=== PATIENT | male | born 1965 | race Caucasian/White ===

== ENCOUNTER 2018-03-21 18:18 | Emergency (ER) | payer OTHER, SELFPAY ==
[2018-03-21 18:20] VITALS: BP 124/74; PULSE 93; RESP 14; TEMP 36.6; O2SAT 100; BMI 38.7
--- NOTE | 2018-03-21 18:41 | ED.MALEGU ---
HPI - Male Genitourinary <Paige Johnson PA-C - Last Filed: 03/21/18 22:01> General Chief complaint: Urogenital-Male Stated complaint: POSSIBLE KIDNEY STONE Time Seen by Provider: 03/21/18 18:41 Source: patient Mode of arrival: ambulatory Limitations: no limitations History of Present Illness HPI Narrative: This 52-year-old male complains of onset of left flank area and lateral abdominal pain 6 days ago. He was 4 days status post revision of his ostomy at that time but does not think related. He states that this seemed to be a localized area on his back initially. He states that he started to push fluids and felt like the pain has been somewhat better after that. He states that pain seems to be worse when he stands up and walks at times, especially standing on his left leg, but it never resolved. He states he has had less appetite than usual and some nausea, but no vomiting. He has only eaten a few crackers today. He states he has had chills, but no fevers at home. He states that he was seen at the [facility] due to this on Wednesday and urinalysis was done. They were concerned that he might have a UTI due to cath placed during surgery, apparently had significant microscopic hematuria. He was started on sulfa antibiotic but states he was called today and told to stop it due to culture being negative. He states that he told them pain is still present and was advised that this could be kidney stones so advised to come in here. He has not had any gross hematuria or dysuria, states his urinary stream is somewhat weaker than usual however. He states his ostomy output is normal for him, has not had any redness or new pain around the surgical site. He denies any other new symptoms on systems review such as chest pain, dyspnea, or swelling in the extremities. He is status post colectomy for Crohn's disease, notes that he has no rectum. He thinks he may have had PSA tested once in the past and normal Related Data Home Medications Medication Instructions Recorded Confirmed cholecalciferol (vitamin D3) #0 06/12/16 [Vitamin D3] folic acid #0 06/12/16 adalimumab 40 mg/0.8 mL 40 mg SUBCUT QWEEK #0 each 10/26/17 10/26/17 subcutaneous pen kit azathioprine 50 mg tablet 250 mg PO QDAY #0 tab 07/24/18 07/24/18 Previous Rx's Medication Instructions Recorded fluoxetine 30 mg PO QDAY #90 cap 06/07/17 amlodipine 10 mg tablet 10 mg PO QDAY #90 tab 01/17/18 loratadine 10 mg capsule 10 mg PO DAILY #90 cap 01/17/18 losartan 50 mg tablet 50 mg PO DAILY #90 tab 01/17/18 methylphenidate 20 mg tablet 20 mg PO BID #60 tab 01/17/18 Allergies Allergy/AdvReac Type Severity Reaction Status Date / Time atenolol [ATENOLOL] AdvReac Mild Drowsy Verified 03/21/18 18:25 Review of Systems <Paige Johnson PA-C - Last Filed: 03/21/18 22:01> Review of Systems All systems reviewed & are unremarkable except as noted in HPI and below Exam <Paige Johnson PA-C - Last Filed: 03/21/18 22:01> Narrative Exam Narrative: GENERAL APPEARANCE: Patient sitting comfortably, in no distress. HEENT: PERRL, EOMI, no scleral icterus, normal oropharynx NECK: Supple LUNGS: Clear to auscultation bilaterally. HEART: Rate and rhythm regular, normal S1 and S2, no S3 or S4. ABDOMEN: Soft, multiple surgical scars noted, nondistended, hypoactive bowel sounds present x 4 quadrants, no masses palpable, no hepatosplenomegaly. Patient indicates tender points in the left flank and left mid lateral abdomen but not elicited or reproducible on exam. No CVAT EXTREMITIES: No edema, no calf tenderness DERMATOLOGIC: No jaundice or exanthem, no erythema around surgical scars or ostomy site NEUROLOGIC: Alert and oriented with normal speech and coordination Initial Vital Signs Initial Vital Signs: Vital Signs Temperature 98 F 03/21/18 18:20 Pulse Rate 93 H 03/21/18 18:20 Respiratory Rate 14 03/21/18 18:20 Blood Pressure 124/74 03/21/18 18:20 Pulse Oximetry 100 03/21/18 18:20 <Tommie Rivera MD - Last Filed: 03/22/18 07:20> Initial Vital Signs Initial Vital Signs: Vital Signs Temperature 98 F 03/21/18 18:20 Pulse Rate 93 H 03/21/18 18:20 Respiratory Rate 14 03/21/18 18:20 Blood Pressure 124/74 03/21/18 18:20 Pulse Oximetry 100 03/21/18 18:20 Course <Paige Johnson PA-C - Last Filed: 03/21/18 22:01> Additional Information: Patient has appeared comfortable during his stay. He states pain has not been severe enough to take his postop pain medication at home. He has not had any vomiting or fever. Reviewed CT which shows likely some postop inflammation and splenic cyst or hemangioma but no explanation for his subacute pain. Since this started a few days postop, advised to call surgeon's office tomorrow and arrange follow up in the next few days. He was given a disc copy of his CT to take there for review. He will take his pain medication that he has at home if needed. He did not think he needed rx for nausea and agreed to return if any acutely worsening sx again. CT findings/labs and exam reviewed with attending Dr. Rivera who is in agreement with plan to d/c and have outpatient follow up Orders Ordered: Discontinued Medications Sodium Chloride (Normal Saline 0.9%) 1,000 mls @ 1,000 mls/hr IV BOLUS ONE Stop: 03/21/18 19:58 Last Admin: 03/21/18 19:39 Dose: 1,000 mls/hr Ondansetron HCl (Zofran) 4 mg IV NOW ONE Stop: 03/21/18 19:00 Last Admin: 03/21/18 19:39 Dose: 4 mg Vital Signs - 8 hr 03/21/18 18:20 03/21/18 21:12 Temperature 98 F Pulse Rate 93 H 80 Respiratory Rate 14 14 Blood Pressure 124/74 Blood Pressure [Left Arm] 115/67 Pulse Oximetry 100 100 <Tommie Rivera MD - Last Filed: 03/22/18 07:20> Orders Ordered: Discontinued Medications Sodium Chloride (Normal Saline 0.9%) 1,000 mls @ 1,000 mls/hr IV BOLUS ONE Stop: 03/21/18 19:58 Last Admin: 03/21/18 19:39 Dose: 1,000 mls/hr Ondansetron HCl (Zofran) 4 mg IV NOW ONE Stop: 03/21/18 19:00 Last Admin: 03/21/18 19:39 Dose: 4 mg Vital Signs - 8 hr 03/21/18 18:20 03/21/18 21:12 Temperature 98 F Pulse Rate 93 H 80 Respiratory Rate 14 14 Blood Pressure 124/74 Blood Pressure [Left Arm] 115/67 Pulse Oximetry 100 100 MDM - Male Genitourinary <Paige Johnson PA-C - Last Filed: 03/21/18 22:01> Lab Data Attestation: I reviewed the patient's lab results. Result diagrams: 03/21/18 19:25 03/21/18 19:25 Lab Results 03/21/18 03/21/18 03/21/18 Range/Units 17:41 19:25 19:25 WBC 9.1 (4.5-11.0) X10^3/uL RBC 5.03 (4.5-5.9) X10^6/uL Hgb 14.8 (13.5-17.5) g/dL Hct 43.7 (41-53) % MCV 86.8 (80-100) fL MCH 29.5 (26-34) PG MCHC 34.0 (30-36) % RDW 13.8 (11.6-14.8) % Plt Count 285 (150-400) X10^3/uL Neut % (Auto) 68.3 (50-75) % Lymph % (Auto) 19.0 L (25-40) % [place] % (Auto) 11.6 (3-14) % Eos % (Auto) 0.5 L (2-4) % Baso % (Auto) 0.6 (0-2) % Neut # (Auto) 6200 (4890-9113) /uL Sodium 145 (137-145) mmol/L Potassium 3.8 (3.4-5.1) mmol/L Chloride 104 (98-107) mmol/L Carbon Dioxide 24 (22-32) mmol/L BUN 14 (9-20) mg/dL Creatinine 1.00 (0.66-1.25) mg/dL Estimated GFR > 60.0 (>60) mL/min BUN/Creatinine Ratio 14.0 (6-22) Glucose 97 (70-100) mg/dL Lactate (0.7-2.1) mmol/L Calcium 10.2 (8.4-10.2) mg/dL Total Bilirubin 1.0 (0.2-1.3) mg/dL AST 40 (17-59) IU/L ALT 46 (21-72) IU/L Alkaline Phosphatase 66 (38-126) U/L Total Protein 8.8 H (6.3-8.2) g/dL Albumin 5.1 H (3.5-5.0) g/dL Globulin 3.7 (1.7-4.1) g/dL Albumin/Globulin Ratio 1.4 (1.0-2.8) Lipase 85 (23-300) U/L Prostate Specific Ag (0.10-4.00) ng/mL Urine RBC 0-1/hpf (0-5/HPF) Urine WBC 0-1/hpf (0-5/HPF) Ur Squamous Epith Cells 0-1 /hpf Uric Acid Crystals Many Urine Bacteria Occasional (0-1) (None) Urine Mucus 1+ H (Negative) Ur Culture Indicated? Cult not indicated Micro UA Comment Not Reportable 03/21/18 03/21/18 Range/Units 19:25 19:25 WBC (4.5-11.0) X10^3/uL RBC (4.5-5.9) X10^6/uL Hgb (13.5-17.5) g/dL Hct (41-53) % MCV (80-100) fL MCH (26-34) PG MCHC (30-36) % RDW (11.6-14.8) % Plt Count (150-400) X10^3/uL Neut % (Auto) (50-75) % Lymph % (Auto) (25-40) % [place] % (Auto) (3-14) % Eos % (Auto) (2-4) % Baso % (Auto) (0-2) % Neut # (Auto) (5194-9579) /uL Sodium (137-145) mmol/L Potassium (3.4-5.1) mmol/L Chloride (98-107) mmol/L Carbon Dioxide (22-32) mmol/L BUN (9-20) mg/dL Creatinine (0.66-1.25) mg/dL Estimated GFR (>60) mL/min BUN/Creatinine Ratio (6-22) Glucose (70-100) mg/dL Lactate 1.1 (0.7-2.1) mmol/L Calcium (8.4-10.2) mg/dL Total Bilirubin (0.2-1.3) mg/dL AST (17-59) IU/L ALT (21-72) IU/L Alkaline Phosphatase (38-126) U/L Total Protein (6.3-8.2) g/dL Albumin (3.5-5.0) g/dL Globulin (1.7-4.1) g/dL Albumin/Globulin Ratio (1.0-2.8) Lipase (23-300) U/L Prostate Specific Ag 0.693 (0.10-4.00) ng/mL Urine RBC (0-5/HPF) Urine WBC (0-5/HPF) Ur Squamous Epith Cells Uric Acid Crystals Urine Bacteria (None) Urine Mucus (Negative) Ur Culture Indicated? Micro UA Comment Urine Dip Bedside Urine Glucose Negative Bedside Urine Bilirubin - Negative Bedside Urine Ketone + 15 Urine Specific [place] 1.030 Bedside Urine Occult Blood +/- Bedside Urine pH 6.0 Bedside Urine Protein +/- 15 Bedside Urine Urobilinogen - Negative Bedside Urine Nitrite - Negative Bedside Urine Leukocytes - Negative Esterase Imaging Data CT scan - abdomen: Radiologist's impression: [place] [address] CT Scan Report Signed Patient: Howie Hunt MR#: [id number] : 1965 Acct:[id number] Age/Sex: 52 / M Date of Service: 03/21/18 Loc: ED Accession Number: [id number] Procedure: CT abdomen pelvis w con Ordering Provider: Paige Johnson P.A-C PROCEDURE: CT ABDOMEN PELVIS W CON INDICATIONS: flank and abd pain, left TECHNIQUE: After the administration of intravenous contrast, 5 mm thick sections acquired from the diaphragm to the symphysis. 5 mm coronal and sagittal reformats were acquired. For radiation dose reduction, the following was used: automated exposure control, adjustment of mA and/or kV according to patient size. COMPARISON: None. FINDINGS: Image quality: Excellent. ABDOMEN: Lung bases: Lung bases are clear. Heart size is normal. Solid organs: There is diffuse hepatic steatosis. Gallbladder demonstrates biliary sludge. Biliary system is non dilated. Pancreas enhances normally. There is a 1.5 cm nonspecific round hypoattenuating focus within the anterior spleen. No adrenal nodules. Kidneys demonstrate normal size and enhancement, without hydronephrosis. Peritoneum and bowel: Postsurgical changes of prior colectomy. Right lower quadrant diverting ileostomy demonstrates circumferential bowel wall thickening and adjacent subcutaneous fat stranding suggestive of inflammation. Postsurgical scarring of the left lower quadrant subcutaneous tissues likely from prior ostomy placement. Nodes and vessels: No retroperitoneal or mesenteric adenopathy by size criteria. Aorta and inferior vena cava are normal in size. Miscellaneous: No ventral hernias. PELVIS: Genitourinary: Bladder wall thickness is normal. Miscellaneous: Small bilateral fat-containing indirect inguinal hernias. Bones: Mild multilevel degenerative changes of the spine. IMPRESSION: #1. 1.5 cm nonspecific round hypoattenuating focus within the anterior spleen, which may represent artifact, a splenic cyst, or splenic hemangioma. Splenic infarct is thought less likely given morphology, but cannot be entirely excluded. #2. Mild inflammation surrounding the right lower quadrant ostomy site. #3. Hepatic steatosis. Dictated by: Jordan Simms M.D. on 03/21/2018 at 21:19 Approved by: Jordan Simms M.D. on 03/21/2018 at 21:29 <Tommie Rivera MD - Last Filed: 03/22/18 07:20> Lab Data Lab Results 03/21/18 03/21/18 03/21/18 Range/Units 17:41 19:25 19:25 WBC 9.1 (4.5-11.0) X10^3/uL RBC 5.03 (4.5-5.9) X10^6/uL Hgb 14.8 (13.5-17.5) g/dL Hct 43.7 (41-53) % MCV 86.8 (80-100) fL MCH 29.5 (26-34) PG MCHC 34.0 (30-36) % RDW 13.8 (11.6-14.8) % Plt Count 285 (150-400) X10^3/uL Neut % (Auto) 68.3 (50-75) % Lymph % (Auto) 19.0 L (25-40) % [place] % (Auto) 11.6 (3-14) % Eos % (Auto) 0.5 L (2-4) % Baso % (Auto) 0.6 (0-2) % Neut # (Auto) 6200 (6711-4832) /uL Sodium 145 (137-145) mmol/L Potassium 3.8 (3.4-5.1) mmol/L Chloride 104 (98-107) mmol/L Carbon Dioxide 24 (22-32) mmol/L BUN 14 (9-20) mg/dL Creatinine 1.00 (0.66-1.25) mg/dL Estimated GFR > 60.0 (>60) mL/min BUN/Creatinine Ratio 14.0 (6-22) Glucose 97 (70-100) mg/dL Lactate (0.7-2.1) mmol/L Calcium 10.2 (8.4-10.2) mg/dL Total Bilirubin 1.0 (0.2-1.3) mg/dL AST 40 (17-59) IU/L ALT 46 (21-72) IU/L Alkaline Phosphatase 66 (38-126) U/L Total Protein 8.8 H (6.3-8.2) g/dL Albumin 5.1 H (3.5-5.0) g/dL Globulin 3.7 (1.7-4.1) g/dL Albumin/Globulin Ratio 1.4 (1.0-2.8) Lipase 85 (23-300) U/L Prostate Specific Ag (0.10-4.00) ng/mL Urine RBC 0-1/hpf (0-5/HPF) Urine WBC 0-1/hpf (0-5/HPF) Ur Squamous Epith Cells 0-1 /hpf Uric Acid Crystals Many Urine Bacteria Occasional (0-1) (None) Urine Mucus 1+ H (Negative) Ur Culture Indicated? Cult not indicated Micro UA Comment Not Reportable 03/21/18 03/21/18 Range/Units 19:25 19:25 WBC (4.5-11.0) X10^3/uL RBC (4.5-5.9) X10^6/uL Hgb (13.5-17.5) g/dL Hct (41-53) % MCV (80-100) fL MCH (26-34) PG MCHC (30-36) % RDW (11.6-14.8) % Plt Count (150-400) X10^3/uL Neut % (Auto) (50-75) % Lymph % (Auto) (25-40) % [place] % (Auto) (3-14) % Eos % (Auto) (2-4) % Baso % (Auto) (0-2) % Neut # (Auto) (4366-9986) /uL Sodium (137-145) mmol/L Potassium (3.4-5.1) mmol/L Chloride (98-107) mmol/L Carbon Dioxide (22-32) mmol/L BUN (9-20) mg/dL Creatinine (0.66-1.25) mg/dL Estimated GFR (>60) mL/min BUN/Creatinine Ratio (6-22) Glucose (70-100) mg/dL Lactate 1.1 (0.7-2.1) mmol/L Calcium (8.4-10.2) mg/dL Total Bilirubin (0.2-1.3) mg/dL AST (17-59) IU/L ALT (21-72) IU/L Alkaline Phosphatase (38-126) U/L Total Protein (6.3-8.2) g/dL Albumin (3.5-5.0) g/dL Globulin (1.7-4.1) g/dL Albumin/Globulin Ratio (1.0-2.8) Lipase (23-300) U/L Prostate Specific Ag 0.693 (0.10-4.00) ng/mL Urine RBC (0-5/HPF) Urine WBC (0-5/HPF) Ur Squamous Epith Cells Uric Acid Crystals Urine Bacteria (None) Urine Mucus (Negative) Ur Culture Indicated? Micro UA Comment Urine Dip Bedside Urine Glucose Negative Bedside Urine Bilirubin - Negative Bedside Urine Ketone + 15 Urine Specific [place] 1.030 Bedside Urine Occult Blood +/- Bedside Urine pH 6.0 Bedside Urine Protein +/- 15 Bedside Urine Urobilinogen - Negative Bedside Urine Nitrite - Negative Bedside Urine Leukocytes - Negative Esterase Discharge Plan Departure Patient Disposition: Home Clinical Impression: Left flank pain Discharge Date/Time: 03/21/18 22:02 Interventions: ED Discharge Assessment Last Done: 03/21/18 22:00 Instructions: DI for Postoperative Pain, DI for Flank Pain Activity Restrictions/Additional Instructions: Please return as we talked about if you have acutely worsening symptoms. Take your pain medication that you have at home as needed. [facility] able [facility], so please make sure you call your surgeon and arrange follow-up for this week. Let them know you were seen in the emergency room with abdominal and flank pain that started a few days after surgery and that we did lab work and a CT scan, and that you will bring the disc with you. Continue your diet and activity as you were instructed after surgery Prescriptions: No Action folic acid 1 MG tablet Qty: 0 RF: 0 cholecalciferol (vitamin D3) [Vitamin D3] 400 UNIT capsule Qty: 0 RF: 0 fluoxetine 10 MG capsule 30 mg PO QDAY Qty: 90 RF: 2 adalimumab [Humira Pen Psoriasis-Uveitis] 40 mg/0.8 mL pen injector kit 40 mg SUBCUT QWEEK Qty: 0 RF: 0 azathioprine [Imuran] 50 mg tablet 250 mg PO QDAY Qty: 0 RF: 0 amlodipine 10 mg tablet 10 mg PO QDAY Qty: 90 RF: 2 loratadine 10 mg capsule 10 mg PO DAILY Qty: 90 RF: 2 losartan 50 mg tablet 50 mg PO DAILY Qty: 90 RF: 2 methylphenidate HCl 20 mg tablet 20 mg PO BID Qty: 60 RF: 0 Referrals: Maye Conklin [Other] Ana Mckinney MD [Primary Care Provider] - <Tommie Rivera MD - Last Filed: 03/22/18 07:20> Cosign ED Attending Cosmirealature Attestation: I was present in the ER at the time this patient's care. I was available for verbal consultation or to see the patient directly. I agree with his assessment and treatment plan.
[2018-03-21 18:57] LABS: Bacteria Urine Occasional (0-1); Culture Indicated Urine Cult Not Indicated; Mucus Urine 1+ (Negative); RBC Urine 0-1/HPF (0-5/HPF); Squamous Epithelial Cell Urine 0-1 /HPF; Uric Acid Crystals Urine Many; WBC Urine 0-1/HPF (0-5/HPF)
--- NOTE | 2018-03-21 19:05 | DI.CT.S_ITS ---
PROCEDURE: CT ABDOMEN PELVIS W CON INDICATIONS: flank and abd pain, left TECHNIQUE: After the administration of intravenous contrast, 5 mm thick sections acquired from the diaphragm to the symphysis. 5 mm coronal and sagittal reformats were acquired. For radiation dose reduction, the following was used: automated exposure control, adjustment of mA and/or kV according to patient size. COMPARISON: None. FINDINGS: Image quality: Excellent. ABDOMEN: Lung bases: Lung bases are clear. Heart size is normal. Solid organs: There is diffuse hepatic steatosis. Gallbladder demonstrates biliary sludge. Biliary system is non dilated. Pancreas enhances normally. There is a 1.5 cm nonspecific round hypoattenuating focus within the anterior spleen. No adrenal nodules. Kidneys demonstrate normal size and enhancement, without hydronephrosis. Peritoneum and bowel: Postsurgical changes of prior colectomy. Right lower quadrant diverting ileostomy demonstrates circumferential bowel wall thickening and adjacent subcutaneous fat stranding suggestive of inflammation. Postsurgical scarring of the left lower quadrant subcutaneous tissues likely from prior ostomy placement. Nodes and vessels: No retroperitoneal or mesenteric adenopathy by size criteria. Aorta and inferior vena cava are normal in size. Miscellaneous: No ventral hernias. PELVIS: Genitourinary: Bladder wall thickness is normal. Miscellaneous: Small bilateral fat-containing indirect inguinal hernias. Bones: Mild multilevel degenerative changes of the spine. IMPRESSION: #1. 1.5 cm nonspecific round hypoattenuating focus within the anterior spleen, which may represent artifact, a splenic cyst, or splenic hemangioma. Splenic infarct is thought less likely given morphology, but cannot be entirely excluded. #2. Mild inflammation surrounding the right lower quadrant ostomy site. #3. Hepatic steatosis. Dictated by: Jordan Simms M.D. on 03/21/2018 at 21:19 Approved by: Jordan Simms M.D. on 03/21/2018 at 21:29
--- NOTE | 2018-03-21 19:34 | PC.NURSE ---
pt reports left flank pain that has now moved into left groin. He stated he is only able to urinate small amounts and still feels like he has urine in his bladder leftover. pt reports recent bowel resection with complications. denies SOB, chest pain, N/V/D.
[2018-03-21 19:36] LABS: Add Manual Diff / Slide Review NO; Basophils Percent Auto 0.6 % (0-2); Eosinophils Percent Auto 0.5 % (2-4); Hematocrit 43.7 % (41-53); Hemoglobin 14.8 g/dL (13.5-17.5); Mean Corpuscular Hemoglobin 29.5 PG (26-34); Mean Corpuscular Volume 86.8 fL (80-100); Monocytes Percent Auto 11.6 % (3-14); Neutrophils Absolute Auto 6200 /uL (1500-7000); Neutrophils Percent Auto 68.3 % (50-75); Platelet Count 285 X10^3/uL (150-400); Red Blood Cell Count 5.03 X10^6/uL (4.5-5.9); Red Cell Distribution Width 13.8 % (11.6-14.8); White Blood Cell Count 9.1 X10^3/uL (4.5-11.0)
[2018-03-21] MEDS: SODIUM CHLORIDE 0.9% 1,000 ML 1000 ML IV (19:39)
[2018-03-21] MEDS: ONDANSETRON 4 MG/2 ML INJ IV (19:39)
[2018-03-21 19:48] LABS: Alanine Aminotransferase 46 IU/L (21-72); Albumin 5.1 g/dL (3.5-5.0); Albumin Globulin Ratio 1.4 (1.0-2.8); Alkaline Phosphatase 66 U/L (38-126); Aspartate Aminotransferase 40 IU/L (17-59); Blood Urea Nitrogen 14 mg/dL (9-20); Calcium 10.2 mg/dL (8.4-10.2); Carbon Dioxide 24 mmol/L (22-32); Chloride 104 mmol/L (98-107); Estimated Glomerular Filt Rate > 60.0 mL/min (>60); Globulin 3.7 g/dL (1.7-4.1); Glucose 97 mg/dL (70-100); HEMOLYSIS < 15 (0-50); Lactate (Lactic Acid) 1.1 mmol/L (0.7-2.1); Lipase 85 U/L (23-300); Potassium 3.8 mmol/L (3.4-5.1); Sodium 145 mmol/L (137-145); Total Protein 8.8 g/dL (6.3-8.2)
[2018-03-21 20:54] LABS: Prostate Specific Antigen 0.693 ng/mL (0.10-4.00)
[2018-03-21 21:12] VITALS: BP 115/67; PULSE 80; RESP 14; O2SAT 100
--- NOTE | 2018-05-13 19:19 | PC.NURSE ---
Normal saline stopped after 1000ml infused in one hour.
== END 2018-03-21 22:02 | disposition home or self-care (01) ==
PROVIDERS: Emergency Medicine; Emergency Provider Internal Medicine; Family Provider Family Medicine; PCP Family Medicine
DX: R10.9 Unspecified abdominal pain (principal)
CPT/HCPCS: 36591; 74177; 80053; 81003; 81015; 83605; 83690; 84153; 85025; 96361; 96374; 99282; 99285; J2405; Q9967

== ENCOUNTER → 2018-11-28 10:18 | Outpatient (CLI) | payer OTHER, SELFPAY | PROVIDERS: Family Provider Family Medicine; PCP Family Medicine; Visit Provider Family Medicine | DX: Z43.9 Encounter for attention to unspecified artificial opening (principal) | CPT/HCPCS: 99213 ==

== ENCOUNTER → 2018-12-21 10:55 | Outpatient (CLI) | payer OTHER, SELFPAY | PROVIDERS: Family Provider Family Medicine; PCP Family Medicine; Visit Provider Family Medicine | DX: Z43.4 Encounter for attention to other artificial openings of digestive tract (principal) | CPT/HCPCS: 99212 ==

== ENCOUNTER → 2019-05-01 09:54 | Outpatient (CLI) | payer OTHER, SELFPAY ==
[2019-05-01 11:49] LABS: TSH w/ Reflex to FT4 1.18 uIU/mL (0.47-4.68)
== END ==
PROVIDERS: PCP Family Medicine; Visit Provider Family Medicine
DX: R53.83 Other fatigue (principal)
CPT/HCPCS: 36415; 84443

== ENCOUNTER → 2020-06-21 09:31 | Outpatient (CLI) | payer OTHER, SELFPAY ==
[2020-06-21 10:22] LABS: Hemoglobin A1C% w Est Avg Glu 6.6 % (4.0-6.0)
[2020-06-21 10:37] LABS: Cholesterol 173 mg/dL (140-199); HDL Cholesterol 83 mg/dL (40-60); LDL Cholesterol Calculated 57 mg/dL (<100); Triglycerides 165 mg/dL (35-150)
[2020-06-21 10:38] LABS: C-Reactive Protein Quant < 0.5 mg/dL (<1.0)
[2020-06-21 10:41] LABS: Erythrocyte Sedimentation Rate 9 MM/HR (0-15)
[2020-06-21 10:55] LABS: TSH w/ Reflex to FT4 1.22 uIU/mL (0.47-4.68)
[2020-06-21 11:50] LABS: Microalbumin Urine Random 1.1 mg/dL (0-1.6)
== END ==
PROVIDERS: PCP Family Medicine; Referring Provider Family Medicine; Visit Provider Family Medicine
DX: I10 Essential (primary) hypertension (principal); R53.83 Other fatigue; R52 Pain, unspecified; R73.9 Hyperglycemia, unspecified
CPT/HCPCS: 36415; 80061; 82043; 82570; 83036; 84443; 85651; 86140

== ENCOUNTER → 2020-09-11 12:12 | Outpatient (CLI) | payer OTHER, SELFPAY ==
[2020-09-11 13:14] LABS: Hemoglobin A1C% w Est Avg Glu 6.7 % (4.0-6.0)
[2020-09-11 13:26] LABS: Alanine Aminotransferase 45 IU/L (<50); Albumin 4.4 g/dL (3.5-5.0); Albumin Globulin Ratio 1.3 (1.0-2.8); Alkaline Phosphatase 97 U/L (38-126); Aspartate Aminotransferase 45 IU/L (17-59); BUN Creatinine Ratio 17.3 (6-22); Bilirubin Total 0.5 mg/dL (0.2-1.3); Blood Urea Nitrogen 14 mg/dL (9-20); Calcium 10.3 mg/dL (8.4-10.2); Carbon Dioxide 23 mmol/L (22-32); Chloride 105 mmol/L (98-107); Estimated Glomerular Filt Rate > 60.0 mL/min (>60); Globulin 3.4 g/dL (1.7-4.1); Glucose 99 mg/dL (70-100); HEMOLYSIS < 15 (0-50); Sodium 138 mmol/L (137-145); Total Protein 7.8 g/dL (6.3-8.2)
== END ==
PROVIDERS: PCP Family Medicine; Referring Provider Family Medicine; Visit Provider Family Medicine
DX: E11.9 Type 2 diabetes mellitus without complications (principal)
CPT/HCPCS: 36415; 80053; 83036

== ENCOUNTER → 2021-06-11 10:43 | Outpatient (CLI) | payer OTHER, SELFPAY ==
[2021-06-11 12:17] LABS: Alanine Aminotransferase 31 IU/L (<50); Albumin 4.7 g/dL (3.5-5.0); Albumin Globulin Ratio 1.4 (1.0-2.8); Alkaline Phosphatase 71 U/L (38-126); Aspartate Aminotransferase 40 IU/L (17-59); BUN Creatinine Ratio 17.8 (6-22); Bilirubin Total 0.5 mg/dL (0.2-1.3); Blood Urea Nitrogen 16 mg/dL (9-20); Carbon Dioxide 31 mmol/L (22-32); Chloride 104 mmol/L (98-107); Cholesterol 170 mg/dL (140-199); Estimated Glomerular Filt Rate > 60.0 mL/min (>60); Globulin 3.4 g/dL (1.7-4.1); Glucose 97 mg/dL (70-100); HDL Cholesterol 76 mg/dL (40-60); HEMOLYSIS < 15 (0-50); LDL Cholesterol Calculated 57 mg/dL (<100); Sodium 140 mmol/L (137-145); Total Protein 8.1 g/dL (6.3-8.2); Triglycerides 186 mg/dL (35-150)
[2021-06-11 12:24] LABS: Hemoglobin A1C% w Est Avg Glu 5.7 % (4.0-6.0)
[2021-06-11 15:40] LABS: Creatinine Urine Random 113.2 mg/dL
[2021-06-11 15:44] LABS: Microalbumin Urine Random 2.5 mg/dL (0-1.6)
== END ==
PROVIDERS: PCP Family Medicine; Referring Provider Family Medicine; Visit Provider Family Medicine
DX: E11.9 Type 2 diabetes mellitus without complications (principal)
CPT/HCPCS: 36415; 80053; 80061; 82043; 82570; 83036

== ENCOUNTER → 2021-09-08 11:14 | Outpatient (CLI) | payer OTHER, SELFPAY | PROVIDERS: PCP Family Medicine; Referring Provider Family Medicine; Visit Provider Family Medicine | DX: E11.9 Type 2 diabetes mellitus without complications (principal) | CPT/HCPCS: 36415; 83036 ==

== ENCOUNTER → 2021-11-06 10:46 | Outpatient (CLI) | payer OTHER, SELFPAY | PROVIDERS: PCP Family Medicine; Referring Provider Family Medicine; Visit Provider Family Medicine | DX: K50.90 Crohn's disease, unspecified, without complications (principal); Z79.52 Long term (current) use of systemic steroids | CPT/HCPCS: 77080 ==

== ENCOUNTER → 2022-04-16 07:53 | Outpatient (CLI) | payer OTHER, SELFPAY ==
[2022-04-16 08:47] LABS: Cholesterol 164 mg/dL (140-199); HDL Cholesterol 68 mg/dL (40-60); LDL Cholesterol Calculated 69 mg/dL (<100); Triglycerides 135 mg/dL (35-150)
[2022-04-16 09:18] LABS: TSH w/ Reflex to FT4 1.63 uIU/mL (0.47-4.68)
[2022-04-16 09:19] LABS: Hemoglobin A1C% w Est Avg Glu 6.5 % (4.0-6.0)
[2022-04-16 09:22] LABS: Testosterone 109 ng/dL (71.8-623)
[2022-04-16 10:26] LABS: Microalbumin Urine Random 7.5 mg/dL (0-1.6)
[2022-04-16 10:34] LABS: Creatinine Urine Random 346.2 mg/dL; Microalbumi Creatinin Ratio Ur 21.6 ug/mg CR (<30)
== END ==
PROVIDERS: PCP Family Medicine; Referring Provider Family Medicine; Visit Provider Family Medicine
DX: E11.9 Type 2 diabetes mellitus without complications (principal); I10 Essential (primary) hypertension; R53.83 Other fatigue
CPT/HCPCS: 36415; 80061; 82043; 82570; 83036; 84403; 84443

== ENCOUNTER → 2022-05-01 11:23 | Outpatient (CLI) | payer OTHER, SELFPAY ==
--- NOTE | 2022-05-01 | DI.CT.S_ITS ---
PROCEDURE: CT ABDOMEN PELVIS W CON INDICATIONS: Crohn's disease, unspecified, without complication TECHNIQUE: After the administration of oral and intravenous contrast, axial sections were acquired from the lung bases to the pubic symphysis. Coronal and sagittal reformats were performed. For radiation dose reduction, the following was used: automated exposure control, adjustment of mA and/or kV according to patient size. COMPARISON:[facility], CT, CT ABDOMEN PELVIS W CON, 03/21/2018, 20:05. FINDINGS: Image quality: Excellent. Lung bases: Unremarkable. Heart: No significant findings. ABDOMEN: Liver: Unremarkable. Gallbladder: The gallbladder appears to contain small noncalcified dependent layering gallstones without evidence of biliary obstruction or acute cholecystitis. Biliary ducts: Unremarkable. Pancreas: Unremarkable. Spleen: Unremarkable. Adrenal Glands: Unremarkable. Kidneys and Ureters: Unremarkable. Stomach and Bowel: Stomach and small bowel loops are unremarkable. The colon appears to have been previously resected. Peritoneum: No abnormal intraperitoneal fluid. No free air. Ventral Wall: No hernia. Abdominal Nodes: No retroperitoneal or mesenteric adenopathy by size criteria. Vessels: Aorta and inferior vena cava are normal in size. PELVIS: Pelvic Organs: Unremarkable. Bladder: Unremarkable. Pelvic Nodes: No enlarged lymph nodes. Miscellaneous: No inguinal hernias are seen. Prior colectomy, right lower quadrant ileostomy. Bones: Unremarkable. IMPRESSION: No active inflammatory process is found. Prior colectomy. Right lower quadrant ileostomy showing no operative complication. Incidental note is made of small noncalcified presumed gallstones within the gallbladder lumen but without associated biliary obstruction or gallbladder wall thickening. These could be more accurately assessed with ultrasound if clinically indicated. Dictated by: Bro Santos M.D. on 05/01/2022 at 15:15 Approved by: Bro Santos M.D. on 05/01/2022 at 15:19
== END ==
PROVIDERS: PCP Family Medicine; Referring Provider Internal Medicine Gastroenterology; Visit Provider Internal Medicine Gastroenterology
DX: K50.90 Crohn's disease, unspecified, without complications (principal); Z90.49 Acquired absence of other specified parts of digestive tract; Z93.2 Ileostomy status
CPT/HCPCS: 74177

== ENCOUNTER → 2022-09-28 11:33 | Outpatient (CLI) | payer OTHER, SELFPAY ==
[2022-09-28 13:19] LABS: Alanine Aminotransferase 34 IU/L (<50); Albumin 4.3 g/dL (3.5-5.0); Albumin Globulin Ratio 1.3 (1.0-2.8); Alkaline Phosphatase 74 U/L (38-126); Aspartate Aminotransferase 39 IU/L (17-59); BUN Creatinine Ratio 18.2 (6-22); Bilirubin Total 0.7 mg/dL (0.2-1.3); Blood Urea Nitrogen 16 mg/dL (9-20); Calcium 9.2 mg/dL (8.4-10.2); Carbon Dioxide 25 mmol/L (22-32); Chloride 105 mmol/L (98-107); Estimated Glomerular Filt Rate > 60 mL/min (>60); Globulin 3.3 g/dL (1.7-4.1); Glucose 105 mg/dL (70-100); HEMOLYSIS < 15 (0-50); Potassium 3.6 mmol/L (3.4-5.1); Sodium 140 mmol/L (137-145); Total Protein 7.6 g/dL (6.3-8.2)
[2022-09-28 15:18] LABS: Creatinine Urine Random 298.3 mg/dL
[2022-09-28 15:23] LABS: Microalbumi Creatinin Ratio Ur 24.4 ug/mg CR (<30); Microalbumin Urine Random 7.3 mg/dL (0-1.6)
[2022-09-29 07:10] LABS: Labcorp Hemoglobin (Hb) A1c 6.1 % (4.8-5.6)
== END ==
PROVIDERS: PCP Family Medicine; Referring Provider Family Medicine; Visit Provider Family Medicine
DX: E11.9 Type 2 diabetes mellitus without complications (principal)
CPT/HCPCS: 36415; 80053; 82043; 82570; 83036

== ENCOUNTER → 2023-02-22 10:37 | Outpatient (CLI) | payer OTHER, SELFPAY ==
[2023-02-22 12:25] LABS: Add Manual Diff / Slide Review NO; Basophils Absolute Auto 100 /uL (0-100); Basophils Percent Auto 0.6 % (0-2); Eosinophils Absolute Auto 100 /uL (0-450); Hematocrit 40.3 % (41-53); Lymphocytes Absolute Auto 2600 /uL (1100-4500); Lymphocytes Percent Auto 30.3 % (25-40); Mean Corpuscular HGB Conc 34.6 % (30-36); Mean Corpuscular Hemoglobin 29.8 PG (26-34); Monocytes Absolute Auto 1000 /uL (0-900); Monocytes Percent Auto 11.7 % (3-14); Neutrophils Absolute Auto 4900 /uL (1500-7000); Neutrophils Percent Auto 56.4 % (50-75); Platelet Count 213 X10^3/uL (150-400); Red Blood Cell Count 4.69 X10^6/uL (4.5-5.9); Red Cell Distribution Width 13.4 % (11.6-14.8); White Blood Cell Count 8.7 X10^3/uL (4.5-11.0)
[2023-02-22 12:35] LABS: Hemoglobin A1C% w Est Avg Glu 6.4 % (4.0-6.0)
[2023-02-22 12:44] LABS: Alanine Aminotransferase 35 IU/L (<50); Albumin 4.4 g/dL (3.5-5.0); Albumin Globulin Ratio 1.3 (1.0-2.8); Alkaline Phosphatase 73 U/L (38-126); Aspartate Aminotransferase 35 IU/L (17-59); BUN Creatinine Ratio 20.5 (6-22); Bilirubin Total 0.7 mg/dL (0.2-1.3); Blood Urea Nitrogen 18 mg/dL (9-20); Calcium 9.7 mg/dL (8.4-10.2); Carbon Dioxide 27 mmol/L (22-32); Chloride 105 mmol/L (98-107); Estimated Glomerular Filt Rate > 60 mL/min (>60); Globulin 3.4 g/dL (1.7-4.1); Glucose 90 mg/dL (70-100); HEMOLYSIS < 15 (0-50); Potassium 3.7 mmol/L (3.4-5.1); Sodium 139 mmol/L (137-145); Total Protein 7.8 g/dL (6.3-8.2)
[2023-02-22 16:35] LABS: Microalbumi Creatinin Ratio Ur 19.1 ug/mg CR (<30); Microalbumin Urine Random 2.7 mg/dL (0-1.6)
== END ==
PROVIDERS: PCP Family Medicine; Referring Provider Family Medicine; Visit Provider Family Medicine
DX: E11.9 Type 2 diabetes mellitus without complications (principal); I10 Essential (primary) hypertension
CPT/HCPCS: 36415; 80053; 82043; 82570; 83036; 85025

== ENCOUNTER → 2023-05-18 11:22 | Outpatient (CLI) | payer OTHER, SELFPAY ==
--- NOTE | 2023-05-18 11:24 | DI.RAD.S_ITS ---
PROCEDURE: XR HIP W PEL IF DONE MATT MIN 4V INDICATIONS: pain TECHNIQUE: AP pelvis with lateral view(s) of the bilateral hip(s). COMPARISON: None. FINDINGS: Bones: No fractures or dislocations. Pelvic ring appears intact. No suspicious bony lesions. Very minimal early degenerative changes within the right hip joint. Soft tissues: The visualized bowel gas pattern is normal. No suspicious soft tissue calcifications. IMPRESSION: Minimal early degenerative right hip joint change. Dictated by: Smiley Alcantara M.D. on 05/18/2023 at 15:29 Approved by: Smiley Alcantara M.D. on 05/18/2023 at 15:29
--- NOTE | 2023-05-18 11:24 | DI.RAD.S_ITS ---
PROCEDURE: XR LUMBAR SPINE 2-3V INDICATIONS: pain TECHNIQUE: 3 views of the lumbar spine were acquired. COMPARISON: None. FINDINGS: Bones: 5 [id number] vertebrae are present. There is trace retrolisthesis of L4-L5. Multilevel degenerative disc and foraminal narrowing most severe at L4-5 and L5-S1. Prominent anterior osteophytes are present at L3-4 as well as L1-2. No vertebral body compression fractures. No suspicious bony lesions. Soft tissues: Overlying bowel gas pattern is normal. No suspicious soft tissue calcifications. IMPRESSION: No acute bony abnormality. Multilevel degenerative changes most severe at L5-S1. Dictated by: Smiley Alcantara M.D. on 05/18/2023 at 15:29 Approved by: Smiley Alcantara M.D. on 05/18/2023 at 15:31
== END ==
PROVIDERS: PCP Family Medicine; Referring Provider Family Medicine; Visit Provider Family Medicine
DX: M47.817 Spondylosis without myelopathy or radiculopathy, lumbosacral region (principal); M47.816 Spondylosis without myelopathy or radiculopathy, lumbar region; M25.559 Pain in unspecified hip; M54.9 Dorsalgia, unspecified
CPT/HCPCS: 72100; 73522

== ENCOUNTER 2023-05-30 09:01 | Emergency (ER) | payer OTHER, SELFPAY ==
[2023-05-30] VITALS (9 sets, daily range): BP systolic 122–138; BP diastolic 59–68; PULSE 98–122; RESP 21–28; TEMP 37.1; O2SAT 96–99; BMI 40.1
--- NOTE | 2023-05-30 09:30 | ED.GENADULT ---
HPI - General Adult General Chief complaint: Fever Stated complaint: high temp feel sick Time Seen by Provider: 05/30/23 09:18 History of Present Illness HPI narrative: 57-year-old gentleman with a history of Crohn's disease, type 2 diabetes, hyperlipidemia, multiple chronic musculoskeletal complaints who had his 1st dose of Ozempic yesterday presents with high fevers. He states his home thermometer measured 104 and 107. He did take Tylenol which was effective. He noted chills as the fevers were reducing. He has not complaining of nausea, vomiting or diarrhea. He does have an ostomy in place and has not noticed increased output nor blood in his stools. He has not complaining of abdominal pain cough. He states he has a mild headache which is relatively common for him. He notes that his chronic musculoskeletal complaints continue but do not seem to be worse than his baseline. On arrival he is tachycardic but not tachypneic nor febrile Related Data Home Medications Medication Instructions Recorded Confirmed cholecalciferol (vitamin D3) 10 ##0 06/12/16 05/18/23 mcg (400 unit) capsule (Vitamin D3) adalimumab 40 mg/0.8 mL 40 mg SUBCUT .q other week #0 ea 01/09/19 05/18/23 subcutaneous pen kit (Humira Pen Cohouyrif-Rkxiiwv-Sjfn Hid Sup Start) Previous Rx's Medication Instructions Recorded blood sugar diagnostic (Blood #100 ea 06/24/20 Glucose Test strips) blood-glucose meter (Blood Glucose #1 ea 06/24/20 Monitoring kit) lancets (Accu-Chek Softclix #100 ea 06/24/20 Lancets) solriamfetol 150 mg tablet 150 mg PO DAILY #30 tabs 07/07/22 cyclobenzaprine 5 mg tablet 5 mg PO TID PRN muscle spasm #30 05/18/23 tabs losartan 100 mg tablet 100 mg PO DAILY #90 tabs 05/18/23 metformin 500 mg tablet 500 mg PO DAILY #90 tabs 05/18/23 semaglutide 0.25 mg or 0.5 mg (2 0.25 mg (0.368 mL) SUBCUT QWEEK #3 05/24/23 mg/3 mL) subcutaneous pen injector mL (Ozempic) Allergies Allergy/AdvReac Type Severity Reaction Status Date / Time atenolol [ATENOLOL] AdvReac Mild Drowsy Verified 05/30/23 09:44 Review of Systems Review of Systems Narrative: Pertinent positive and negative findings as per HPI Patient History Medical History (Updated 05/30/23 @ 11:23 by Ale Caceres MD) Type 2 diabetes mellitus Crohn's disease (1988) Hyperlipidemia Chronic back pain Depression Sleep apnea (2004) Hidradenitis suppurativa History of drainage of abscess (08/14/98) Surgical History Anesthesia History of neck surgery (09/20/04) History of axillary surgery (04/19/00) History of rectal surgery (02/12/98) History of axillary surgery (06/08/94) History of creation of ostomy (1993) History of colon resection (1991) Family History (Updated 10/20/17 @ 11:36 by Melanie Agrawal) Father Diabetes mellitus Sister Diabetes mellitus Social History marital status: unmarried,single Smoking Status: Never smoker alcohol intake: never substance use type: does not use Smoking Status: Never smoker alcohol intake frequency: 0-2 drinks per day Substance Use Type: does not use Exam Initial Vital Signs Initial Vital Signs: Vital Signs Blood Pressure 123/60 05/30/23 09:21 General: Healthy appearing, in no acute distress. Able to give a complete and coherent history. Well-nourished well-developed HEENT: Moist mucous membranes, mildly injected sclera with reactive pupils, Neck: No JVD, no cervical adenopathy Respiratory: Lungs are clear to auscultation, no wheezing no rales no rhonchi. Full and symmetrical air movement Cardiac: Regular rate and rhythm no murmurs no bruits Abdomen: Soft, obese nontender, ostomy site looks healthy, good bowel tones, no flank pain Skin: Warm and dry, no rashes Neurologic: Grossly neurologically intact with no obvious asymmetries or abnormalities Extremities: No trauma, well perfused Psych: Cooperative, appropriate insight and affect Course Orders Ordered: ED Orders 05/30/23 09:30 Lactate (Lactic Acid) Stat 05/30/23 09:35 Complete Blood Count AUTO DIFF Stat Comprehensive Metabolic Panel Stat Covid-19 + FLU A/B + RSV - PCR Stat Lipase Stat 05/30/23 09:48 XR chest 1V Stat Urinalysis and Microscopic Stat 05/30/23 10:05 Blood Culture Stat Discontinued Medications Sodium Chloride (Normal Saline 0.9%) 1,000 mls @ 1,000 mls/hr IV BOLUS ONE Stop: 05/30/23 10:48 Last Admin: 05/30/23 10:00 Dose: 1,000 mls/hr Documented By: EDGARDO Vital Signs Vital signs: Vital Signs - 8 hr 05/30/23 09:21 05/30/23 09:22 05/30/23 09:30 Temperature Pulse Rate 122 H Respiratory Rate Blood Pressure 123/60 127/59 L Pulse Oximetry 96 Oxygen Delivery Method 05/30/23 09:30 05/30/23 09:44 05/30/23 10:00 Temperature 98.7 F Pulse Rate 112 H 119 H 105 H Respiratory Rate 25 H 23 28 H Blood Pressure 123/60 Pulse Oximetry 96 97 97 Oxygen Delivery Method Room Air 05/30/23 10:00 Temperature Pulse Rate Respiratory Rate Blood Pressure 122/61 Pulse Oximetry Oxygen Delivery Method Medical Decision Making Lab Data 05/30/23 09:35 05/30/23 09:35 Labs: Lab Results 05/30/23 05/30/23 Range/Units 09:30 09:35 WBC 8.2 (4.5-11.0) X10^3/uL RBC 4.43 L (4.5-5.9) X10^6/uL Hgb 13.2 L (13.5-17.5) g/dL Hct 38.1 L (41-53) % MCV 85.9 (80-100) fL MCH 29.9 (26-34) PG MCHC 34.8 (30-36) % RDW 13.3 (11.6-14.8) % Plt Count 184 (150-400) X10^3/uL Neut % (Auto) 54.5 (50-75) % Lymph % (Auto) 19.5 L (25-40) % [place] % (Auto) 25.1 H (3-14) % Eos % (Auto) 0.1 L (2-4) % Baso % (Auto) 0.8 (0-2) % Neut # (Auto) 4500 (5627-1451) /uL Lymph # (Auto) 1600 (1677-1994) /uL [place] # (Auto) 2100 H (0-900) /uL Eos # (Auto) 0 (0-450) /uL Baso # (Auto) 100 (0-100) /uL Sodium 137 (137-145) mmol/L Potassium 3.6 (3.4-5.1) mmol/L Chloride 106 (98-107) mmol/L Carbon Dioxide 21 L (22-32) mmol/L BUN 18 (9-20) mg/dL Creatinine 1.08 (0.66-1.25) mg/dL Estimated GFR > 60 (>60) mL/min BUN/Creatinine Ratio 16.7 (6-22) Glucose 119 H (70-100) mg/dL Lactate 1.5 (0.7-2.1) mmol/L Calcium 9.0 (8.4-10.2) mg/dL Total Bilirubin 0.7 (0.2-1.3) mg/dL AST 54 (17-59) IU/L ALT 46 (<50) IU/L Alkaline Phosphatase 65 (38-126) U/L Total Protein 7.8 (6.3-8.2) g/dL Albumin 4.2 (3.5-5.0) g/dL Globulin 3.6 (1.7-4.1) g/dL Albumin/Globulin Ratio 1.2 (1.0-2.8) Lipase 120 (23-300) U/L SARS-CoV-2 (PCR) Positive H (Negative) Influenza A (RT-PCR) Flu a negative (NEGATIVE) Influenza B (RT-PCR) Flu b negative (NEGATIVE) RSV (PCR) Negative (Negative) MDM Narrative Medical decision making narrative: CC: High fevers with chills for last 24 hours Complicating co-morbidities: Diabetes, hypertension Data collected from: patient, Medical records reviewed: Primary care notes from May 18 are reviewed. Differential considered: Viral syndrome, sepsis, pneumonia Exam documented above, pertinent findings include: Mildly injected sclera, currently afebrile. Lungs are clear belly is benign no evidence of cellulitis and skin exam Lab Test results independently reviewed as above. Pertinent findings: CBC is unremarkable Chemistries are reassuring Lactic acid is not elevated No evidence of pancreatitis Serology is positive for COVID today Imaging studies independently reviewed: Chest x-ray shows no acute findings Treatments: Fluids Discussion: 57-year-old gentleman with fevers over the last 24 hours. Slight tachypnea however no hypoxia. Mild tachycardia improved with fluid resuscitation. Workup is positive for COVID with no secondary findings of bacterial infection or COVID complications. He is not requiring oxygen. Discussed anticipated recovery and reasons to return to the emergency department. Suggested symptomatic treatment for the fevers. Questions are answered he is safe for discharge Discharge Plan Departure Patient Disposition: Home Clinical Impression: COVID Instructions: COVID-19 Activity Restrictions/Additional Instructions: Thank you for coming in today You do have COVID Fortunately, I am not seeing any complications such as pneumonia heart failure, electrolyte abnormalities kidney issues or oxygen deficiencies. At this time, this is going to feel like a mild cold. Reasons to return to the emergency department include severe shortness of breath, severe weakness or changes to your current presentation. Plenty of fluids, ibuprofen and Tylenol to help with the body aches, headache and fevers. Occv-iok-owxazzs cough medicines can be helpful in suppressing the cough so that you are able to sleep. If you find that you are getting worse or develop any new symptoms, please feel free to return to the emergency department for further evaluation. Prescriptions: No Action solriamfetol 150 mg tablet 150 mg PO DAILY Qty: 30 0RF losartan 100 mg tablet 100 mg PO DAILY Qty: 90 3RF cyclobenzaprine 5 mg tablet 5 mg PO TID PRN (Reason: muscle spasm) Qty: 30 0RF metformin 500 mg tablet 500 mg PO DAILY Qty: 90 3RF Rx Instructions: Wk 1: 1/2 tab pm Wk 2: 1 tab pm Wk 3: 1/2 tab am, 1 tab pm Wk 4: 1 tab am & pm Wk 5: 1 tab am, 1 1/2 tabs pm Wk 6: 2 tab am & pm cholecalciferol (vitamin D3) [Vitamin D3] 400 UNIT capsule Qty: 0 Humira Pen Rqlq-Pklfoc-Pkps HS 40 mg/0.8 mL pen injector kit 40 mg SUBCUT .q other week Qty: 0 (DME) blood-glucose meter [Blood Glucose Monitoring] Kit See Rx Instructions .ROUTE .MEDSUPPLY Qty: 1 0RF Rx Instructions: As directed (DME) Blood Glucose Test Strip See Rx Instructions .ROUTE .MEDSUPPLY Qty: 100 0RF Rx Instructions: use to test daily (DME) lancets [Accu-Chek Softclix Lancets] Misc See Rx Instructions .ROUTE .MEDSUPPLY Qty: 100 0RF Rx Instructions: use to test daily Ozempic 0.25 mg or 0.5 mg (2 mg/3 mL) pen injector 0.25 mg SUBCUT QWEEK Qty: 3 0RF Rx Instructions: for 4 weeks Referrals: Ana Mckinney MD [Primary Care Provider] - Stand Alone Forms: Patient Portal/API
--- NOTE | 2023-05-30 09:48 | DI.RAD.S_ITS ---
PROCEDURE: XR CHEST 1V INDICATIONS: fever TECHNIQUE: One view of the chest was acquired. COMPARISON: None. FINDINGS: Surgical changes and devices: None. Lungs and pleura: On this semiupright portable chest examination, no large pneumothorax or large pleural effusions are seen. No focal infiltrates are seen. Mediastinum: Mediastinal contours appear normal. Heart size is normal. Bones and chest wall: No suspicious bony lesions. Overlying soft tissues appear unremarkable. IMPRESSION: No acute cardiopulmonary abnormality is seen. No focal infiltrates are seen. Dictated by: Ehsan Loja M.D. on 05/30/2023 at 9:54 Approved by: Ehsan Loja M.D. on 05/30/2023 at 9:55
[2023-05-30] MEDS: SODIUM CHLORIDE 0.9% 1,000 ML 1000 ML IV (10:00)
[2023-05-30 10:04] LABS: Alanine Aminotransferase 46 IU/L (<50); Albumin 4.2 g/dL (3.5-5.0); Albumin Globulin Ratio 1.2 (1.0-2.8); Alkaline Phosphatase 65 U/L (38-126); Aspartate Aminotransferase 54 IU/L (17-59); BUN Creatinine Ratio 16.7 (6-22); Bilirubin Total 0.7 mg/dL (0.2-1.3); Blood Urea Nitrogen 18 mg/dL (9-20); Carbon Dioxide 21 mmol/L (22-32); Chloride 106 mmol/L (98-107); Estimated Glomerular Filt Rate > 60 mL/min (>60); Globulin 3.6 g/dL (1.7-4.1); Glucose 119 mg/dL (70-100); HEMOLYSIS < 15 (0-50); Lipase 120 U/L (23-300); Potassium 3.6 mmol/L (3.4-5.1); Sodium 137 mmol/L (137-145); Total Protein 7.8 g/dL (6.3-8.2)
[2023-05-30 10:05] LABS: Lactate (Lactic Acid) 1.5 mmol/L (0.7-2.1)
[2023-05-30 10:09] LABS: Add Manual Diff / Slide Review NO; Basophils Absolute Auto 100 /uL (0-100); Basophils Percent Auto 0.8 % (0-2); Eosinophils Absolute Auto 0 /uL (0-450); Eosinophils Percent Auto 0.1 % (2-4); Hematocrit 38.1 % (41-53); Hemoglobin 13.2 g/dL (13.5-17.5); Lymphocytes Absolute Auto 1600 /uL (1100-4500); Lymphocytes Percent Auto 19.5 % (25-40); Mean Corpuscular HGB Conc 34.8 % (30-36); Mean Corpuscular Hemoglobin 29.9 PG (26-34); Mean Corpuscular Volume 85.9 fL (80-100); Monocytes Absolute Auto 2100 /uL (0-900); Monocytes Percent Auto 25.1 % (3-14); Neutrophils Absolute Auto 4500 /uL (1500-7000); Neutrophils Percent Auto 54.5 % (50-75); Platelet Count 184 X10^3/uL (150-400); Red Blood Cell Count 4.43 X10^6/uL (4.5-5.9); Red Cell Distribution Width 13.3 % (11.6-14.8); White Blood Cell Count 8.2 X10^3/uL (4.5-11.0)
[2023-05-30 10:36] LABS: COVID-19 CEPHEID 4-PLEX PCR POSITIVE (Negative); Influenza A - CEPHEID Flu A NEGATIVE (NEGATIVE); Influenza B - CEPHEID Flu B NEGATIVE (NEGATIVE); Respiratory Syncytial Virus Negative (Negative)
== END 2023-05-30 11:33 | disposition home or self-care (01) ==
PROVIDERS: Emergency Provider Emergency Medicine; PCP Family Medicine
DX: U07.1 COVID-19 (principal)
CPT/HCPCS: 0241U; 36415; 71045; 80053; 83605; 83690; 85025; 87040; 87077; 87147; 87186; 99284

== ENCOUNTER → 2023-06-08 11:40 | Outpatient (CLI) | payer OTHER, SELFPAY | PROVIDERS: PCP Family Medicine; Referring Provider Family Medicine; Visit Provider Family Medicine | DX: R78.81 Bacteremia (principal) | CPT/HCPCS: 36415; 87040 ==

== ENCOUNTER → 2024-06-28 10:29 | Outpatient (CLI) | payer OTHER, SELFPAY ==
[2024-06-28 11:50] LABS: Microalbumin Urine Random 4.8 mg/dL (0-1.6)
[2024-06-28 12:01] LABS: Creatinine Urine Random 460.95 mg/dL
== END ==
PROVIDERS: PCP Family Medicine; Referring Provider Family Medicine; Visit Provider Family Medicine
DX: R74.8 Abnormal levels of other serum enzymes (principal)
CPT/HCPCS: 82043; 82570

== ENCOUNTER → 2024-07-07 10:39 | Outpatient (CLI) | payer OTHER, SELFPAY ==
[2024-07-07 11:17] LABS: Hemoglobin A1C% w Est Avg Glu 5.3 % (4.0-6.0)
[2024-07-07 11:35] LABS: Alanine Aminotransferase 33 IU/L (<50); Albumin 4.9 g/dL (3.5-5.0); Albumin Globulin Ratio 1.6 (1.0-2.8); Alkaline Phosphatase 56 U/L (38-126); Aspartate Aminotransferase 34 IU/L (17-59); BUN Creatinine Ratio 20.1 (6-22); Bilirubin Total 0.9 mg/dL (0.2-1.3); Blood Urea Nitrogen 29 mg/dL (9-20); Calcium 10.7 mg/dL (8.4-10.2); Carbon Dioxide 18 mmol/L (22-32); Chloride 106 mmol/L (98-107); Cholesterol 144 mg/dL (140-199); Estimated Glomerular Filt Rate 57 mL/min (>60); Glucose 114 mg/dL (70-100); HDL Cholesterol 65 mg/dL (40-60); HEMOLYSIS < 15 (0-50); LDL Cholesterol Calculated 47 mg/dL (<100); Potassium 3.9 mmol/L (3.4-5.1); Sodium 139 mmol/L (137-145); Total Protein 7.9 g/dL (6.3-8.2); Triglycerides 158 mg/dL (35-150)
== END ==
PROVIDERS: PCP Family Medicine; Referring Provider Family Medicine; Visit Provider Family Medicine
DX: E11.9 Type 2 diabetes mellitus without complications (principal)
CPT/HCPCS: 80053; 80061; 83036

== ENCOUNTER → 2024-07-24 08:25 | Outpatient (CLI) | payer OTHER, SELFPAY ==
--- NOTE | 2024-07-24 08:26 | DI.US.S_ITS ---
PROCEDURE: US RENAL COMPLETE INDICATIONS: elevated creatine TECHNIQUE: Real-time scanning was performed of the kidneys and bladder, with image documentation. COMPARISON: None. FINDINGS: Kidneys: Kidneys are normal in size. Right kidney measures 12.7 cm long; left kidney measures 12.0 cm long. Right renal cortical thickness is 1.8 cm; left renal cortical thickness is 2.0 cm. Renal cortical echotexture is normal. No hydronephrosis or nephrolithiasis. No suspicious solid mass lesions. Bladder: Urinary bladder is nondistended and not well evaluated. Miscellaneous: No free pelvic fluid. IMPRESSION: No hydronephrosis or nephrolithiasis. Approved by: Ruddy Mosley M.D. on 07/24/2024 at 10:33
== END ==
PROVIDERS: PCP Family Medicine; Referring Provider Family Medicine; Visit Provider Family Medicine
DX: R74.8 Abnormal levels of other serum enzymes (principal)
CPT/HCPCS: 76770

== ENCOUNTER → 2024-10-26 11:21 | Outpatient (CLI) | payer OTHER, SELFPAY ==
[2024-10-26 13:14] LABS: Blood Urea Nitrogen 21 mg/dL (9-20); Calcium 9.9 mg/dL (8.4-10.2); Carbon Dioxide 21 mmol/L (22-32); Chloride 106 mmol/L (98-107); Estimated Glomerular Filt Rate > 60 mL/min (>60); Glucose 110 mg/dL (70-99); HEMOLYSIS < 15 (0-50); Potassium 3.8 mmol/L (3.4-5.1); Sodium 140 mmol/L (137-145)
[2024-10-26 14:30] LABS: Microalbumi Creatinin Ratio Ur 21.0 ug/mg CR (<30)
== END ==
PROVIDERS: PCP Family Medicine; Referring Provider Family Medicine; Visit Provider Family Medicine
DX: R74.8 Abnormal levels of other serum enzymes (principal); E11.9 Type 2 diabetes mellitus without complications
CPT/HCPCS: 36415; 80048; 82043; 82570